=== PATIENT | male | born 1990 | race Caucasian/White ===

== ENCOUNTER 2017-06-21 12:38 | Inpatient (IN) | payer BC, OTHER ==
[~2017-06-21] VITALS: Ht 180.3 cm; Wt 72.6 kg
[2017-06-21 14:00] VITALS: BP 111/77
--- NOTE | 2017-06-21 14:10 | NUR ---
PREADMISSION NOTE Pt interviewed and assessed in Intake. Alert and oriented x 4. Vitals blood pressure 111/77, pulse 96, respirations 16, oxygen saturation 96 percent. Pt admitted for dependence on Xanax, ETOH/Vodka, Cocaine. 1. Xanax, oral route, uses 2 -4 tabs of 0.5mg per day x 1 week, last use this am at 0800, took one tab. History of Xanax use for 8 year 2. ETOH/Vodka, 5 or more shots per weekend x 16 years, last use 0600 this am, took one shot. 3. Cocaine, inhalation, 1 gram per week x 2 years, last use last night at 0200, used a "crocker bump". History of hypertension, anxiety, depression. Pt ambulatory, stable gait, clear speech. No tremors or sweating noted. Pt reports that 2 weeks ago he fell and had new onset of sciatica; went to ER and then to PCP. Pt also reports MRI of spine showed 2 bulging discs. Educated Pt on unit rules.
[2017-06-21 14:23] LABS: BASOPHILS % (AUTO) 0.5 % (0.0-2.0); EOSINOPHILS % (AUTO) 0.4 % (0.0-7.0); HEMATOCRIT 48.2 % (40-50); HEMOGLOBIN 16.2 G/DL (14.0-18.0); LYMPHOCYTES # (AUTO) 2.1 K/UL (0.8-4.8); LYMPHOCYTES % (AUTO) 47.7 % (20.5-51.5); MEAN CORPUSCULAR HEMOGLOBIN 29.7 UUG (27.0-31.0); MEAN CORPUSCULAR HGB CONC 34 g/dL (32.0-37.0); MEAN CORPUSCULAR VOLUME 88.1 FL (82.0-92.0); MONOCYTES # (AUTO) 0.2 K/UL (0.1-1.30); MONOCYTES % (AUTO) 4.9 % (0.0-11.0); NEUTROPHILS % (AUTO) 46.5 % (38.5-71.5); PLATELET COUNT (AUTO) 297 K/UL (150-450); RED BLOOD CELL COUNT(AUTO) 5.47 MIL/UL (4.7-6.1); WHITE BLOOD COUNT (AUTO) 4.3 K/UL (4.0-11.2)
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
[2017-06-21] MEDS ORDERED: AZIL80TA PO (14:49)
[2017-06-21] MEDS ORDERED: CYCL10TA9 PO (14:51)
[2017-06-21 14:52] LABS: BILIRUBIN,TOTAL 0.2 mg/dL (0.2-1.0); MAGNESIUM 2.2 mg/dL (1.8-2.4); POTASSIUM 4.1 mmol/L (3.5-5.1); TOTAL PROTEIN, SERUM 9.3 g/dL (6.4-8.2)
[2017-06-21] MEDS ORDERED: NAPR500T PO (14:52)
[2017-06-21] MEDS ORDERED: ALPR0.5T8 PO (14:53)
[2017-06-21 15:06] LABS: *AMPHETAMINE, URINE NEGATIVE (NEGATIVE); *BARBITURATE, URINE NEGATIVE (NEGATIVE); *CANNABINOID, URINE NEGATIVE (NEGATIVE); *COCCAINE, URINE POSITIVE (NEGATIVE); *OPIATE, URINE NEGATIVE (NEGATIVE); *PHENCYCLIDINE SCREEN,URINE NEGATIVE (NEGATIVE)
[2017-06-21 16:30] VITALS: BP 115/74
--- NOTE | 2017-06-21 18:18 | NUR ---
PRN MEDICATION ADMINISTRATION CIWA 12. Gave Ativan 1 mg po.
--- NOTE | 2017-06-21 19:15 | NUR ---
START OF SHIFT Received 26 year old male patient admitted on 06/21/17 for ETOH, Xanax and Cocaine dependency. Pt is full code with NKA. He reports a PMHx of HTN, anxiety, and depression. Pt reports using ETOH (vodka) 5 shots over the weekend since age 10. Last dose was 1 shot on 06/21/17. Xanax PO 0.5 mg daily for 8 years. Last dose was 0.5 mg on 06/21/17. And Cocaine 1 gram over one week for 2 years. Last dose was 06/21/17 at 0200. Pt not currently on a taper but has PRN medications available. Pt is alert and oriented x4, breathing is even and unlabored. Safety measures in place. Will monitor.
--- NOTE | 2017-06-21 19:18 | NUR ---
PRN REASSESSMENT CIWA was 12 at 1818, was given 1 mg Ativan. CIWA now 4. Reported to night RN.
--- NOTE | 2017-06-21 19:24 | NUR ---
END OF SHIFT NOTE Pt admitted for dependence on Xanax, ETOH/Vodka, Cocaine. History of hypertension, anxiety, depression. NKA, NKDA. Pt currently sleeping but easily awakens to verbal for CIWA assessment. CIWA 12 at 1818 and given Ativan 1 mg PRN. CIWA 4 at 191, reported to night RN. No tremors or sweating noted. Bed in low position and locked, call light in reach, side rails up x 2. Fall and Seizure precautions in place. Report given to night RN.
[2017-06-21 20:03] VITALS: BP 108/60
--- NOTE | 2017-06-21 20:06 | NUR ---
ONE TIME ATIVAN Pt received one time Ativan 2 mg per MD order. CIWA:5. Will monitor effectiveness.
--- NOTE | 2017-06-21 21:06 | NUR ---
ONE TIME ATIVAN REASSESSMENT Medication is effective. Pt lying in bed with eyes closed noted to be asleep. Respirations 16, breathing is even and unlabored. Safety measures in place. Will monitor.
--- NOTE | 2017-06-22 | NUR ---
VITALS REFUSED/CIWA DEFERRED 0000 vitals refused by pt. CIWA deferred d/t pt lying in bed with eyes closed noted to be asleep. Respirations 16, breathing is even and unlabored. Safety measures in place. Will monitor.
[2017-06-22 04:16] VITALS: BP 126/82
--- NOTE | 2017-06-22 04:17 | NUR ---
CIWA DEFERRED Pt lying in bed with eyes closed noted to be asleep. Respirations 16, breathing is even and unlabored. Safety measures in place. Will monitor.
--- NOTE | 2017-06-22 07:09 | NUR ---
END OF SHIFT Pt is a 26 year old male patient admitted on 06/21/17 for ETOH, Xanax and Cocaine dependency. Pt is full code with NKA. He reports a PMHx of HTN, anxiety, and depression. He is not currently on a taper but has PRN medications available. He did not receive or request PRN medications, but he received a one time order of Ativan 2 mg at 2100. He slept a total of 9 hrs, Intake: 820mL, Void:x2, BM:0, CIWA:5. Pt remains alert and oriented x4, breathing is even and unlabored. Safety measures in place. Endorsed to oncoming shift.
[2017-06-22 08:00] VITALS: BP 127/85
[2017-06-22 08:06] LABS: HEPATITIS B SURFACE AG Negative (Negative)
--- NOTE | 2017-06-22 10:12 | NUR ---
START OF SHIFT Received report from overnight cashier nurse. Patient is 26 year old male admitted for medically supervised withdrawal from alcohol and alprazolam. Patient is full code with NKA. On assessment this AM: CIWA: 4. Denies SOB, chest pain. Patients vitals signs WNL. Reports nausea, tingling arms and hands and anxiety. Med compliant with AM meds, No PRN given. Refused PPD skin test, MD notified. Patient was encouraged to attend group meetings today. Will continue to monitor patient. Addendum: 06/22/17 at 1043 by VINEET EDDY RN Patient also noted with bilateral hand tremors.
--- NOTE | 2017-06-22 11:36 | NUR ---
ENDORSEMENT OF PATIENT Report given to DILLON Caceres.
--- NOTE | 2017-06-22 11:40 | NUR ---
ASSUMED CARE FOR PT. HE IS A/O X 4 IN BED WATCHING TV WITH NO COMPLAINTS AT THIS TIME. WILL CONTINUE TO MONITOR AND MANAGE S/S OF W/D.
[2017-06-22 12:00] VITALS: BP 134/95
[2017-06-22 15:00] VITALS: BP 134/90
[2017-06-22 16:00] VITALS: BP 134/90
[2017-06-22] MEDS ORDERED: GABA-534 PO (18:29)
[2017-06-22] MEDS ORDERED: MULT-24 PO (18:29)
[2017-06-22] MEDS ORDERED: HYDR-3895 PO (18:29)
[2017-06-22] MEDS ORDERED: DIPH50CA37 PO (18:29)
[2017-06-22] MEDS ORDERED: THIA100T13 PO (18:29)
[2017-06-22] MEDS ORDERED: FOLI1TAB16 PO (18:29)
--- NOTE | 2017-06-22 19:02 | NUR ---
END OF SHIFT: PT SCHEDULED FOR DISCHARGE IN AM AND STATES HE IS GOING TO TREATMENT. NO PRNS GIVEN. HE STAYED IN HIS ROOM AND READ MOST OF DAY. HE IS COMPLIANT WITH MEDS AND LAST CIWA 2. WILL PASS SHIFT REPORT TO ONCOMING NIGHT NURSE.
--- NOTE | 2017-06-22 19:15 | NUR ---
Start of Shift Note: Patient is a 26 y/o male admitted on 06/21/17 for ETOH and Benzo dependence. Patient has PMHx: HTN, Anxiety & Depression. Patient is on a regular diet with no known food and drug allergies. Full Code status. Skin noted to be intact. Patient is scheduled to be discharge tomorrow. Last COWS is 2. No PRN medications given during day shift. Patient is alert & oriented x4. Patient lying in bed with no s/s of distress. No shortness of breath noted. Respiration even & unlabored. Abdomen soft & non-distended. No nausea/vomiting noted. Patient denies any pain/discomfort. Patient complains of anxiety. No hallucinations noted. Safety measures in place. Bed locked in lowest position. Both side rails up. Call light with in pts reach. Will continue to monitor patient.
[2017-06-22 20:00] VITALS: BP 130/91
--- NOTE | 2017-06-22 20:26 | NUR ---
PRN Benadryl & Vistaril Patient complains of anxiety and he is requesting for medication to help him sleep. PRN Benadryl and Vistaril administered as ordered. Will continue to monitor patient.
--- NOTE | 2017-06-22 21:26 | NUR ---
PRN Reassessment Patient asleep in bed and appears comfortable. No s/s of distress noted. No facial grimacing noted. PRN Vistaril and Benadryl effective. Will continue to monitor patient.
--- NOTE | 2017-06-23 04:00 | NUR ---
Vitals/Ciwa deferred Patient refused vitals @ 0400. Patient is asleep in bed and appears comfortable. No s/s of distress noted. Safety measures in place. Will continue to monitor patient.
--- NOTE | 2017-06-23 07:23 | NUR ---
End of Shift Note: Pt had an uneventful night. Pt remains stable and vitals remains WNL. Pt is scheduled to be discharge today. Pt remained compliant with medications. Last CIWA 2 noted. Pt was given PRN Benadryl for sleep and was effective. Pt slept for a total of 8 hours. Pt consumed 1350ml of fluids. Voided 3x with no bowel movement. All needs attended & met. Safety measures in place. Will endorse pt to day shift nurse.
--- NOTE | 2017-06-23 07:34 | NUR ---
BEGINNING OF SHIFT Patient is a 26 year old male, with admitting Dx: etoh/bzo Dependence, and with substance use of: cocaine. Patient with past medical history of: anxiety,HTN, and depression. Patient completed PRN ativan and is scheduled to be discharged this morning. Patient skin is intact. Per metal riveter patient slept for 8 hours, and received PRN:benadryl, vistaril during metal riveter, medication effective. Patient with last ciwa score of: 2. Patient received in bed awake, alert and oriented x4, educated patient regarding plan of care for the day with good verbal understanding. Safety measures in place. call light kept with in reach, will continue to monitor closely.
[2017-06-23 08:47] VITALS: BP 145/89
--- NOTE | 2017-06-23 09:40 | NUR ---
DISCHARGE Patient discharged at 0948, prior to discharge patient was educated and provided with teaching regarding all discharge instructions with good verbal understanding. Vital signs were stable. no s/sx of withdrawal, last ciwa score of: 0. Patient noted self motivated towards sobriety. Patients home medications, discharge instructions, and prescriptions were placed in patients personal duffel bag. Patient off the unit at 0940 in stable condition.
== END 2017-06-23 09:40 | disposition home or self-care (01) | DRG 897 ==
LOC: SRC 13:12
PROVIDERS: ADMIT Internal Medicine; ATTEND Internal Medicine
PROC: HZ2ZZZZ Detoxification Services for Substance Abuse Treatment (ICD-10-PCS; principal; 2017-06-21)
DX: F10.230 Alcohol dependence with withdrawal, uncomplicated (principal); F14.20 Cocaine dependence, uncomplicated; K70.10 Alcoholic hepatitis without ascites; F32.9 Major depressive disorder, single episode, unspecified; F13.90 Sedative, hypnotic, or anxiolytic use, unspecified, uncomplicated; Y90.8 Blood alcohol level of 240 mg/100 ml or more; G89.29 Other chronic pain; F41.9 Anxiety disorder, unspecified; M54.5 Low back pain; F17.211 Nicotine dependence, cigarettes, in remission; Z82.49 Family history of ischemic heart disease and other diseases of the circulatory system; Z81.8 Family history of other mental and behavioral disorders
CPT/HCPCS: 36415; 80307; 80353; 83735; 85025; 86580; 86592; 86705; 86803; 87340; 87806; A4663; G0480; J3411; Q0163